=== PATIENT | male | born 1940 | race Caucasian/White ===

== ENCOUNTER 2017-10-25 12:51 | Outpatient (CLI) | payer MEDICARE ==
--- NOTE | 2017-10-25 13:38 | CT ---
CT BRAIN PERFORMED WITHOUT CONTRAST ENHANCEMENT: History: Follow up, hydrocephalus. Comparison: 07-25-17 FINDINGS: Since that prior examination there has been placement of a ventriculoperitoneal shunt tube. The shunt tube enters in the right frontal region and extends to the right frontal horn. There has been signif icant reduction in size of the ventricles since that examination. The old right parietal catheter is unchanged in position. The extraaxial spaces are now more prominent. There is some slight increased attenuation within them particularly over the right frontal convexity. I cannot exclude this being a small amount of old bloo d. There is no midline shift. IMPRESSION: 1. Interval placement of a right frontal ventriculoperitoneal shunt tube with significant reduction i n size of the ventricles. 2. Slightly more prominent extraaxial spaces related to the ventricular decompression. Some slight in crease attenuation associated with the subdural spaces could be on the basis of some minimal old bloo d. POS: [facility]
== END 2017-10-25 12:52 | disposition home or self-care (01) ==
LOC: TBSIIMAG 12:51
PROVIDERS: ATTEND Surgery
DX: G91.9 Hydrocephalus, unspecified (principal); Z98.2 Presence of cerebrospinal fluid drainage device
CPT/HCPCS: 70450

== ENCOUNTER 2017-11-13 12:57 | Outpatient (CLI) | payer MEDICARE ==
--- NOTE | 2017-11-13 15:36 | CT ---
HEAD CT WITHOUT CONTRAST: Date: 11-13-17 Comparison: 10-25-17 History: Hydrocephalus, shunt placement three weeks ago, recent fall, head trauma. Technique: Serial axial CT imaging obtained at 5 mm intervals from vertex through skull base without contrast. FINDINGS: The imaged paranasal sinuses and mastoid air cells are well aerated. Evidence of prior suboccipital c raniectomy noted with post-operative clips in place. There is a peripheral small area of hypodensity involving the posterior aspect of the left cerebellar hemisphere, suggesting prior insult, stable. Stable effacement of the fourth ventricle. There are segments of [employer] shunt tubing noted on the right, with a component inserted via an anterior a pproach, distal tip approaching the frontal horn of the right lateral ventricle and a temporal compon ent approaches the superior posterior right aspect of the body of the right lateral ventricle. There is a small subdural collection on the right, less conspicuous than on the prior examination. Th ere is stable cerebral volume loss. Ventricular system is stable in size and configuration. No acute hemorrhage or midline shirt. IMPRESSION: 1. Stable head CT as detailed above. POS: [facility]
== END 2017-11-13 12:58 | disposition home or self-care (01) ==
LOC: CT 12:57
PROVIDERS: ATTEND Surgery
DX: G91.9 Hydrocephalus, unspecified (principal); Z98.2 Presence of cerebrospinal fluid drainage device
CPT/HCPCS: 70450